=== PATIENT | male | born 1980 | race American Indian/Alaskan Native ===

== ENCOUNTER 2017-02-07 21:41 | Emergency (ER) | payer MEDICARE ==
[2017-02-07 22:00] VITALS: BP 128/81
[2017-02-07 22:31] LABS: Basophils % (Auto) 0.3 % (0.0-1.8); Eosinophils % (Auto) 0.3 % (0.0-4.3); Hematocrit 45.5 % (35.5-45.6); Hemoglobin 15.2 gm/dl (11.8-15.2); Mean Corpuscular HGB Conc 33 % (32-34); Mean Corpuscular Hemoglobin 30 pg (28-32); Mean Corpuscular Volume 91 fl (84-94); Red Blood Count 5.02 M/mm3 (3.65-5.03); Red Cell Distribution Width 13.5 % (13.2-15.2); White Blood Count 12.4 K/mm3 (4.5-11.0)
[2017-02-07 22:38] LABS: Platelet Count 155 K/mm3 (140-440)
[2017-02-07 22:45] LABS: Anion Gap 20 mmol/L; Blood Urea Nitrogen 11 mg/dL (9-20); Calcium 9.1 mg/dL (8.4-10.2); Carbon Dioxide 23 mmol/L (22-30); Chloride 101.5 mmol/L (98-107); Glucose 117 mg/dL (75-100); INR 1.07 (0.87-1.13); Potassium 4.3 mmol/L (3.6-5.0); Sodium 140 mmol/L (137-145)
[2017-02-07 22:46] LABS: Partial Thromboplastin Time 27.5 Sec. (24.2-36.6)
== END 2017-02-07 22:50 | disposition left against medical advice (07) ==
LOC: ED 21:41
DX: R07.89 Other chest pain (principal); F14.10 Cocaine abuse, uncomplicated; R61 Generalized hyperhidrosis; Z53.21 Procedure and treatment not carried out due to patient leaving prior to being seen by health care provider
CPT/HCPCS: 36415; 80048; 84484; 85025; 85610; 85730; 93005; 93010

== ENCOUNTER 2017-02-08 10:11 | Emergency (ER) | payer MEDICARE ==
[2017-02-08] MEDS ORDERED: HALDOL IM ONE (11:11)
--- NOTE | 2017-02-08 11:17 | Emergency Department Report ---
HPI - General Chief Complaint: Psych Time Seen by Provider: 02/08/17 10:53 - HPI HPI: This is a 36-year-old Afro-[place] male who [place] [facility] with the need for a mental health evaluation. At first the patient is cooperative but has pressured speech and tangential thoughts. At first the patient says he is here because he is "in love with a beautiful woman." Then he started asking how he can go to school and become a nurse. When asked how he got here, he says that he got here in a van driven by a apple named Francisco and "I trust him" but it does not appear as if he knows this individual. The patient says he was previously had [facility] for drug abuse and schizophrenia. He says that he is still not taking the medications prescribed. ED Past Medical Hx - Past Medical History Previous Medical History?: Yes Hx Psychiatric Treatment: Yes (SCHIZOPHRENIA,BIPOLAR) - Surgical History Past Surgical History?: Yes Additional Surgical History: Fractured left arm. - Social History Smoking Status: Current Every Day Smoker Substance Use Type: None - Medications Home Medications: Home Medications Medication Instructions Recorded Confirmed Last Taken Type Quetiapine Fumarate [Seroquel] 100 mg PO QHS #15 tablet 03/07/16 Unknown Rx Ibuprofen [Motrin 600 MG tab] 600 mg PO Q8H PRN #30 tablet 12/22/16 Unknown Rx Nicotine [Habitrol] 14 mg TD DAILY #30 patch 12/22/16 Unknown Rx ED Review of Systems ROS: Stated complaint: BACK PAIN Other details as noted in HPI Comment: All other systems reviewed and negative Constitutional: denies: chills, fever Eyes: denies: eye pain, eye discharge, vision change ENT: denies: ear pain, throat pain Respiratory: denies: cough, shortness of breath, wheezing Cardiovascular: denies: chest pain, palpitations Gastrointestinal: denies: abdominal pain, nausea, diarrhea Genitourinary: denies: urgency, dysuria Musculoskeletal: denies: back pain, joint swelling, arthralgia Skin: denies: rash, lesions Neurological: denies: headache, weakness, paresthesias Psychiatric: auditory hallucinations. denies: homicidal thoughts, suicidal thoughts Physical Exam - Physical Exam Vital Signs: Vital Signs 02/08/17 10:30 Temperature 98.0 F Pulse Rate 68 Respiratory 18 Rate Blood Pressure 132/69 O2 Sat by Pulse 99 Oximetry Physical Exam: GENERAL: The patient is well-developed well-nourished. HEENT: Normocephalic. Atraumatic. Extraocular motions are intact. Patient has moist mucous membranes. Pupils equal reactive to light bilaterally. NECK: Supple. Trachea is midline. CHEST/LUNGS: Clear to auscultation. There is no respiratory distress noted. HEART/CARDIOVASCULAR: Regular. There is no tachycardia. There is no gallop rub or murmur. ABDOMEN: Abdomen is soft, nontender. Patient has normal bowel sounds. There is no abdominal distention. SKIN: Skin is warm and dry. NEURO: The patient is awake, alert, and oriented. The patient is cooperative. The patient has no focal neurologic deficits. The patient has normal gait. No slurred speech. MUSCULOSKELETAL: There is no tenderness or deformity. There is no limitation range of motion. There is no evidence of acute injury. PSYCH: Patient has pressured speech and tangential thoughts. ED Course Vital Signs 02/08/17 10:30 Temperature 98.0 F Pulse Rate 68 Respiratory 18 Rate Blood Pressure 132/69 O2 Sat by Pulse 99 Oximetry ED Medical Decision Making - Lab Data Result diagrams: 02/08/17 11:23 02/08/17 11:23 - Medical Decision Making This is a 36-year-old male who presents to the emergency department from [facility] with what appears to be the need for a mental health evaluation. At first the patient appears friendly but it is obvious that he has some level of psychosis going on as he is having tangential thoughts and some stream of consciousness along with pressured speech. However shortly after I finished my initial history and examination, the patient became very aggressive towards ER staff and required some seclusion and eventually chemical sedation. Prior to this the patient was yelling at the top of his lungs, banging on the [place] and windows. For these reasons the patient has been made a 1013 and will need further psychiatric attention. Patient's labs have this far been unremarkable. Negative blood alcohol level. No signs of infection and normal electrolytes. We do not yet have a urinalysis on this patient and there could be some drug involvement as he has a history of previous cocaine abuse but I do not believe that this will stop him from needing further psychiatric evaluation. Vital signs stable throughout his ED course. Patient is medically cleared for psychiatric placement. - Differential Diagnosis bipolar disorder, schizophrenia, schizoaffective, substance abuse Critical Care Time: No Critical care attestation.: If time is entered above; I have spent that time in minutes in the direct care of this critically ill patient, excluding procedure time. ED Disposition Clinical Impression: Schizophrenia Qualifiers: Schizophrenia type: unspecified Qualified Code(s): F20.9 - Schizophrenia, unspecified Psychosis Qualifiers: Psychosis type: unspecified psychosis type Qualified Code(s): F29 - Unspecified psychosis not due to a substance or known physiological condition Disposition: DC/TX PSY HOSP/PSY UNIT Is pt being admited?: No Condition: Stable Time of Disposition: 13:24
[2017-02-08 11:49] LABS: Basophils % (Auto) 0.7 % (0.0-1.8); Eosinophils % (Auto) 1.5 % (0.0-4.3); Hematocrit 47.2 % (35.5-45.6); Hemoglobin 15.6 gm/dl (11.8-15.2); Mean Corpuscular HGB Conc 33 % (32-34); Mean Corpuscular Hemoglobin 30 pg (28-32); Mean Corpuscular Volume 91 fl (84-94); Red Cell Distribution Width 13.9 % (13.2-15.2); White Blood Count 13.3 K/mm3 (4.5-11.0)
[2017-02-08 11:53] LABS: Anion Gap 20 mmol/L; Blood Urea Nitrogen 16 mg/dL (9-20); Calcium 9.4 mg/dL (8.4-10.2); Carbon Dioxide 23 mmol/L (22-30); Chloride 103.7 mmol/L (98-107); Glucose 120 mg/dL (75-100); Potassium 4.1 mmol/L (3.6-5.0); Sodium 143 mmol/L (137-145)
[2017-02-08 11:59] LABS: Platelet Count 178 K/mm3 (140-440)
--- NOTE | 2017-02-08 13:51 | Consultation ---
History of Present Illness - Reason for Consult Consult date: 02/08/17 Reason for consult: psychiatric evaluation - Chief Complaint Chief complaint: "I'm in love" 36 year old black male seen in the ER for psychiatric evaluation. He presents with manic/psychotic symptoms. He is tangential, has flight of ideas, and is paranoid. He reports smoking cocaine yesterday and drinking a beer. He received haldol prior to the interview. He is agreeable to po meds. He was at [facility] within the week and the lodge. Medications and Allergies Allergies Allergy/AdvReac Type Severity Reaction Status Date / Time No Known Allergies Allergy Verified 12/27/16 10:36 Home Medications Medication Instructions Recorded Confirmed Last Taken Type Quetiapine Fumarate [Seroquel] 100 mg PO QHS #15 tablet 03/07/16 Unknown Rx Ibuprofen [Motrin 600 MG tab] 600 mg PO Q8H PRN #30 tablet 12/22/16 Unknown Rx Nicotine [Habitrol] 14 mg TD DAILY #30 patch 12/22/16 Unknown Rx Past psychiatric history - Past Medical History Past Medical History: No medical history Past Surgical History: No surgical history - past Psychiatric treatment and history Psych: Bipolar, Psychosis, Schizophrenia - Social History Social history: other (unable to assess psychosocial details) Mental Status Exam - Vital signs Last Vital Signs Temp 98.0 F 02/08/17 10:30 Pulse 68 02/08/17 10:30 Resp 18 02/08/17 12:09 BP 132/69 02/08/17 10:30 Pulse Ox 99 02/08/17 10:30 - Exam Orientation: place, person Affect: agitated Mood: congruent with affect Thought content: delusions, paranoia Thought Process: Flight of Ideas, Disorganized Perceptions: other (denied) Speech: pressured Concentration: unable to pay attention Motor activity: agitated Level of consciousness: alert Sleep Symptoms: Insomnia Interaction: other (he attempted to be cooperative but required redirection multiple times) Results Result Diagrams: 02/08/17 11:23 02/08/17 11:23 Abnormal lab results 02/08/17 02/08/17 Range/Units 11:23 11:23 WBC 13.3 H (4.5-11.0) K/mm3 RBC 5.20 H (3.65-5.03) M/mm3 Hgb 15.6 H (11.8-15.2) gm/dl Hct 47.2 H (35.5-45.6) % [place] % (Auto) 9.8 H (0.0-7.3) % [place] # 1.3 H (0.0-0.8) K/mm3 Seg Neutrophils # 8.1 H (1.8-7.7) K/mm3 Glucose 120 H (75-100) mg/dL All other labs normal. Assessment and Plan Assessment and plan: Impression: Schizoaffective disorder/bipolar type:Acute psychosis Cocaine use Recommendation: Ativan 2mg po every 6 hours prn agitation Zyprexa 5mg bid for psychosis 1013 and transfer to inpatient psychiatric facility - Psychiatric problem (1) Schizoaffective disorder, bipolar type Current Visit: Yes Status: Acute
[2017-02-08] MEDS: ATIVAN PO PRN (15:18)
[2017-02-09] MEDS: ATIVAN PO PRN ×2 (09:06→21:23)
--- NOTE | 2017-02-09 19:00 | Progress Note ---
Subjective - Reason for Consult Reason for consult: psych consult - Chief Complaint Chief complaint: 36 year old black male with history of scpt and cocaine abuse presents to [facility] for an evaluation. Patient currently is preoccupied with returning back to [place] in the PHP program. He states that he is not incurring any psychosis. He denies any SI/HI/AH/VH. He states that he's tolerating his meds and denies any depression or keturah. Mental Status Exam - Vital signs Last Vital Signs Temp 97.6 F 02/09/17 11:00 Pulse 73 02/09/17 11:00 Resp 16 02/09/17 11:11 BP 126/74 02/09/17 11:00 Pulse Ox 100 02/09/17 11:11 - Exam Orientation: time, place, person Affect: normal Mood: anxious Thought content: delusions Thought Process: Circumstantial Perceptions: none Speech: rapid Concentration: distractible Motor activity: agitated Level of consciousness: alert Memory: Intact Interaction: cooperative Assessment and Plan Impression: Schizoaffective disorder/bipolar type Cocaine use Recommendation: Ativan 2mg po every 6 hours prn agitation Zyprexa 5mg bid for psychosis will look at possible placement with PHP/inpatient
[2017-02-10 21:34] VITALS: BP 134/82
[2017-02-10] MEDS: ATIVAN PO PRN (22:19)
--- NOTE | 2017-02-11 08:12 | Progress Note ---
Subjective - Reason for Consult Consult date: 02/11/17 Reason for consult: Psychiatry Follow-up - Chief Complaint Chief complaint: "Will I be leaving today" 36 year old black male with history of scpt and cocaine abuse presents to [facility] for an evaluation. Today patient is calm and cooperative during assessment. He would like to return to [place], but will be transported to [facility]. He stated that he slept well with no issues with his appetite. He denies SI/HI's and AVH's at this time. He denies any side effects from his psy medications. He denies depression or manic symptoms. Mental Status Exam - Vital signs Last Vital Signs Temp 98.0 F 02/10/17 21:33 Pulse 70 02/10/17 21:33 Resp 20 02/11/17 06:26 BP 134/82 02/10/17 21:33 Pulse Ox 99 02/11/17 06:26 - Exam Narrative exam: MSE: Appearance: calm, cooperative Behavior: good eye contact Speech: regular rate and tone Mood: "I feel pretty good" Affect: euthymic Thought Process: linear Thought Content: denies SI/HI's and AVH's Motor Activity: sitting up in bed Cognition: A/Ox3 Insight: fair Judgment: fair Assessment and Plan Impression: 36 year old black male with history of scpt and cocaine abuse presents to [facility] for an evaluation. Today patient is calm and cooperative during assessment. He would like to return to [place], but will be transported to [facility]. Recommendation/Plan: Pending transfer to [facility] today. Report called by assigned RN.
--- NOTE | 2017-02-13 15:23 | ED Elopement Review ---
ED Pt Elopement review - Results review Lab results: Laboratory Tests 02/08/17 02/08/17 02/08/17 11:23 11:23 11:23 WBC 13.3 H RBC 5.20 H Hgb 15.6 H Hct 47.2 H MCV 91 MCH 30 MCHC 33 RDW 13.9 Plt Count 178 Lymph % (Auto) 27.3 [place] % (Auto) 9.8 H Eos % (Auto) 1.5 Baso % (Auto) 0.7 Lymph # 3.6 [place] # 1.3 H Eos # 0.2 Baso # 0.1 Seg Neutrophils % 60.7 Seg Neutrophils # 8.1 H Sodium 143 Potassium 4.1 Chloride 103.7 Carbon Dioxide 23 Anion Gap 20 BUN 16 Creatinine 1.0 Estimated GFR > 60 BUN/Creatinine Ratio 16.00 Glucose 120 H Calcium 9.4 Plasma/Serum Alcohol < 0.01 - Call Back decision Pt Call Back Decision: No action required
== END 2017-02-11 08:15 ==
LOC: EEVIPCON 10:11 → ED 10:11
DX: F20.9 Schizophrenia, unspecified (principal); F29 Unspecified psychosis not due to a substance or known physiological condition; F31.9 Bipolar disorder, unspecified; F17.200 Nicotine dependence, unspecified, uncomplicated
CPT/HCPCS: 36415; 80048; 85025; 96372; 99285; G0480; J1630; 80320

== ENCOUNTER 2017-03-24 10:41 | Emergency (ER) | payer MEDICARE | END 2017-03-24 10:55 | disposition left against medical advice (07) | LOC: ED 10:41 | DX: R07.9 Chest pain, unspecified (principal); Z53.21 Procedure and treatment not carried out due to patient leaving prior to being seen by health care provider ==

== ENCOUNTER 2017-03-24 22:50 | Emergency (ER) | payer MEDICAID, MEDICARE ==
[2017-03-25 01:40] VITALS: BP 120/84
--- NOTE | 2017-03-27 09:34 | ED Elopement Review ---
ED Pt Elopement review - Call Back decision Pt Call Back Decision: No action required
== END 2017-03-25 06:04 | disposition left against medical advice (07) ==
LOC: ED 22:50
DX: R07.9 Chest pain, unspecified (principal); Z53.21 Procedure and treatment not carried out due to patient leaving prior to being seen by health care provider
CPT/HCPCS: 93005; 93010

== ENCOUNTER 2017-03-25 16:38 | Emergency (ER) | payer MEDICAID, MEDICARE ==
[2017-03-26] MEDS ORDERED: ATIVAN ONE (03:34)
[2017-03-26] MEDS ORDERED: HALDOL ONE (03:34)
[2017-03-26] MEDS ORDERED: ATIVAN IM PRN (03:50)
[2017-03-26] MEDS ORDERED: HALDOL IM ONE (03:50)
--- NOTE | 2017-03-26 03:52 | Emergency Department Report ---
ED General Adult HPI - General Chief complaint: Dyspnea/Respdistress Stated complaint: Diff Breathing Time Seen by Provider: 03/26/17 03:01 Source: patient, RN notes reviewed, old records reviewed Mode of arrival: Ambulatory Limitations: Other (patient is psychiatrically disorganized, and the patient is a very poor historian) - History of Present Illness Initial comments: Is 36-year-old male. He is previously unknown to me. Has a medical history of schizophrenia and bipolar. The patient presents to the ER complaining of "broken heart." He indicates that this symptom has been present since the 1920s. He indicates his grandmother is upsetting him. The patient does indicate that he is access to guns and firearms. The patient is elusive about homicidality and suicidality. The patient indicates no vomiting or diaphoresis. No leg pain. No leg swelling. The patient is initially refusing laboratory studies. The patient is obviously psychotic, and does not exhibit decision-making capacity, it is clearly danger to himself and other people. He is placed on a 1013. Low risk by well's criteria, no pulmonary embolus or DVT risk factors, PERC negative, low risk by GINNY score, low risk by heart sure. The patient required Haldol and Ativan. Laboratory studies are unremarkable. At this point in time , it appears that there is no medical contraindication to psychiatric admissions this evaluation/consultation. -: Gradual Severity scale (0 -10): 0 Associated Symptoms: denies: cough, diaphoresis - Related Data Previous Rx's Medication Instructions Recorded Last Taken Type Quetiapine Fumarate [Seroquel] 100 mg PO QHS #15 tablet 03/07/16 Unknown Rx Ibuprofen [Motrin 600 MG tab] 600 mg PO Q8H PRN #30 tablet 12/22/16 Unknown Rx Nicotine [Habitrol] 14 mg TD DAILY #30 patch 12/22/16 Unknown Rx Allergies Allergy/AdvReac Type Severity Reaction Status Date / Time No Known Allergies Allergy Verified 12/27/16 10:36 ED Review of Systems ROS: Stated complaint: Diff Breathing Other details as noted in HPI Constitutional: denies: fever Eyes: denies: eye discharge ENT: denies: epistaxis Respiratory: see HPI Cardiovascular: chest pain Gastrointestinal: denies: vomiting Genitourinary: as per HPI Musculoskeletal: as per HPI Neurological: as per HPI Psychiatric: as per HPI. denies: suicidal thoughts ED Past Medical Hx - Past Medical History Hx Psychiatric Treatment: Yes (SCHIZOPHRENIA,BIPOLAR) Additional medical history: bronchitis - Surgical History Additional Surgical History: Fractured left arm. - Social History Smoking Status: Current Every Day Smoker Substance Use Type: None - Medications Home Medications: Home Medications Medication Instructions Recorded Confirmed Last Taken Type Quetiapine Fumarate [Seroquel] 100 mg PO QHS #15 tablet 03/07/16 Unknown Rx Ibuprofen [Motrin 600 MG tab] 600 mg PO Q8H PRN #30 tablet 12/22/16 Unknown Rx Nicotine [Habitrol] 14 mg TD DAILY #30 patch 12/22/16 Unknown Rx ED Physical Exam - General Limitations: No Limitations General appearance: alert, in no apparent distress - Head Head exam: Present: atraumatic, normocephalic - Eye Eye exam: Present: normal appearance - ENT ENT exam: Present: normal exam, normal orophraynx, mucous membranes moist - Neck Neck exam: Present: normal inspection, full ROM. Absent: tenderness, meningismus - Respiratory Respiratory exam: Present: normal lung sounds bilaterally. Absent: respiratory distress, wheezes, rales, rhonchi, stridor, chest wall tenderness, accessory muscle use, decreased breath sounds, prolonged expiratory - Cardiovascular Cardiovascular Exam: Present: regular rate, normal rhythm, normal heart sounds. Absent: bradycardia, tachycardia, irregular rhythm, systolic murmur, diastolic murmur, rubs, gallop - GI/Abdominal GI/Abdominal exam: Present: soft, normal bowel sounds. Absent: distended, tenderness, guarding, rebound, rigid, pulsatile mass - Rectal Rectal exam: Present: deferred - Extremities Exam Extremities exam: Present: normal inspection, full ROM, normal capillary refill. Absent: tenderness, pedal edema, joint swelling, calf tenderness - Back Exam Back exam: Present: normal inspection, full ROM. Absent: tenderness, CVA tenderness (R), CVA tenderness (L), muscle spasm, paraspinal tenderness, vertebral tenderness - Neurological Exam Neurological exam: Present: alert, normal gait, other (Extraocular movements intact. Tongue midline. No facial droop. Facial sensation intact to light touch in the V1, V2, V3 distribution bilaterally. 5 and 5 strength in 4 extremities.. Sensation is intact to light touch in 4 extremities.). Absent: motor sensory deficit - Psychiatric Psychiatric exam: Present: agitated - Skin Skin exam: Present: warm, dry, intact, normal color. Absent: rash ED Course Vital Signs 03/25/17 03/26/17 17:16 02:35 Temperature 98.6 F 98 F Pulse Rate 74 88 Respiratory 20 18 Rate Blood Pressure 137/86 Blood Pressure 132/77 [Left] O2 Sat by Pulse 100 99 Oximetry ED Medical Decision Making - Lab Data Result diagrams: 03/26/17 03:57 03/26/17 03:57 Vital Signs 03/25/17 03/26/17 17:16 02:35 Temperature 98.6 F 98 F Pulse Rate 74 88 Respiratory 20 18 Rate Blood Pressure 137/86 Blood Pressure 132/77 [Left] O2 Sat by Pulse 100 99 Oximetry Lab Results 03/26/17 03/26/17 03/26/17 Range/Units 03:57 03:57 03:57 WBC 9.1 (4.5-11.0) K/mm3 RBC 5.10 H (3.65-5.03) M/mm3 Hgb 15.3 H (11.8-15.2) gm/dl Hct 46.0 H (35.5-45.6) % MCV 90 (84-94) fl MCH 30 (28-32) pg MCHC 33 (32-34) % RDW 13.5 (13.2-15.2) % Plt Count 138 L (140-440) K/mm3 Sodium 138 (137-145) mmol/L Potassium 3.9 (3.6-5.0) mmol/L Chloride 99.9 (98-107) mmol/L Carbon Dioxide 28 (22-30) mmol/L Anion Gap 14 mmol/L BUN 9 (9-20) mg/dL Creatinine 1.1 (0.8-1.5) mg/dL Estimated GFR > 60 ml/min BUN/Creatinine Ratio 8.18 % Glucose 113 H (75-100) mg/dL Calcium 8.6 (8.4-10.2) mg/dL Total Creatine Kinase 348 H (55-170) units/L Salicylates < 0.3 L (2.8-20.0) mg/dL Acetaminophen (10.0-30.0) ug/mL Plasma/Serum Alcohol (0-0.07) gm% 06/06/17 06/06/17 Range/Units 03:57 03:57 WBC (4.5-11.0) K/mm3 RBC (3.65-5.03) M/mm3 Hgb (11.8-15.2) gm/dl Hct (35.5-45.6) % MCV (84-94) fl MCH (28-32) pg MCHC (32-34) % RDW (13.2-15.2) % Plt Count (140-440) K/mm3 Sodium (137-145) mmol/L Potassium (3.6-5.0) mmol/L Chloride (98-107) mmol/L Carbon Dioxide (22-30) mmol/L Anion Gap mmol/L BUN (9-20) mg/dL Creatinine (0.8-1.5) mg/dL Estimated GFR ml/min BUN/Creatinine Ratio % Glucose (75-100) mg/dL Calcium (8.4-10.2) mg/dL Total Creatine Kinase (55-170) units/L Salicylates (2.8-20.0) mg/dL Acetaminophen < 15.0 (10.0-30.0) ug/mL Plasma/Serum Alcohol < 0.01 (0-0.07) gm% - EKG Data -: EKG Interpreted by Me EKG shows normal: sinus rhythm Rate: bradycardia - EKG Data When compared to previous EKG there are: no significant change Interpretation: unchanged when compared t 03/26/17 05:20 sinus bradycardia, normal intervals, normal axis, not consistent with STEMI, appears unchanged compared to prior - Radiology Data Radiology results: image reviewed interpreted by me: X-ray of the chest is negative for acute disease - Medical Decision Making Differential diagnosis: Bipolar, schizophrenia, mood disorder, atypical chest pain, medical clearance for psychiatric placement Critical care attestation.: If time is entered above; I have spent that time in minutes in the direct care of this critically ill patient, excluding procedure time. ED Disposition Clinical Impression: Mood disorder Disposition: DC/TX PSY HOSP/PSY UNIT Is pt being admited?: No Does the pt Need Aspirin: No Condition: Stable Referrals: PRIMARY CARE, [Primary Care Provider] - 3-5 Days
[2017-03-26 04:16] LABS: Hemoglobin 15.3 gm/dl (11.8-15.2); Mean Corpuscular HGB Conc 33 % (32-34); Mean Corpuscular Hemoglobin 30 pg (28-32); Mean Corpuscular Volume 90 fl (84-94); Platelet Count 138 K/mm3 (140-440); Red Cell Distribution Width 13.5 % (13.2-15.2); White Blood Count 9.1 K/mm3 (4.5-11.0)
[2017-03-26 04:35] LABS: BUN/Creatinine Ratio 8.18; Blood Urea Nitrogen 9 mg/dL (9-20); Calcium 8.6 mg/dL (8.4-10.2); Carbon Dioxide 28 mmol/L (22-30); Creatine Kinase 348 units/L (55-170); Glucose 113 mg/dL (75-100)
[2017-03-26 04:36] LABS: Anion Gap 14 mmol/L; Chloride 99.9 mmol/L (98-107); Potassium 3.9 mmol/L (3.6-5.0); Sodium 138 mmol/L (137-145)
--- NOTE | 2017-03-26 07:29 | XRay Report ---
Chest 2 views: History: Shortness of breath. Findings Normal cardiomediastinal silhouette. Trachea is midline. No consolidation, pneumothorax or pleural effusion. Impression: No acute cardiopulmonary findings.
--- NOTE | 2017-03-26 14:33 | Consultation ---
History of Present Illness - Reason for Consult Consult date: 03/26/17 Reason for consult: Mental Health Evaluation Requesting physician: RIMA HAMMER - Chief Complaint Chief complaint: "I am fine" - History of Present Psychiatric Illness 36-year-old male with a psy history of schizophrenia and bipolar. The patient presents to the ER complaining of "broken heart." He indicates that this symptom has been present since the 1920s. Today patient is uncooperative during assessment. He would state, "I just came here because I have bronchitis." Per the ER note patient was uncooperative during the entire triage. He is elusive with his questions, but did state that he takes Seroquel. Patient had to be redirected multiple times, possible responding to external/internal stimuli. He denies SI/HI's, AVH's, and depression symptoms. Medications and Allergies Allergies Allergy/AdvReac Type Severity Reaction Status Date / Time No Known Allergies Allergy Verified 12/27/16 10:36 Home Medications Medication Instructions Recorded Confirmed Last Taken Type Quetiapine Fumarate [Seroquel] 100 mg PO QHS #15 tablet 03/07/16 Unknown Rx Ibuprofen [Motrin 600 MG tab] 600 mg PO Q8H PRN #30 tablet 12/22/16 Unknown Rx Nicotine [Habitrol] 14 mg TD DAILY #30 patch 12/22/16 Unknown Rx Active Meds: Active Medications Lorazepam (Ativan) 2 mg IM Q4HR PRN PRN Reason: Agitation Last Admin: 03/26/17 03:53 Dose: 2 mg Past psychiatric history - Past Medical History Past Medical History: No medical history Past Surgical History: No surgical history - past Psychiatric treatment and history Psych: Bipolar, Schizophrenia psychiatric treatment history: Multiple inpatient settings. Would not answer about fam psy hx. - Social History Social history: other (Would not say where he reside.) Mental Status Exam - Vital signs Last Vital Signs Temp 97.5 F L 03/26/17 08:00 Pulse 65 03/26/17 08:00 Resp 18 03/26/17 08:34 BP 135/77 03/26/17 08:00 Pulse Ox 100 03/26/17 08:34 - Exam Narrative exam: ROS: (-) depression (+) psychosis MSE: Appearance: uncooperative Behavior: poor eye contact Speech: regular rate and tone Mood: "I am cool" Affect: congruent to mood Thought Process: tangential Thought Content: denies SI/HI's and AVH's Motor Activity: lying in bed Cognition: a/ox 3 Insight: limited Judgment: limited Results Result Diagrams: 03/26/17 03:57 03/26/17 03:57 Abnormal lab results 03/26/17 03/26/17 03/26/17 Range/Units 03:57 03:57 03:57 RBC 5.10 H (3.65-5.03) M/mm3 Hgb 15.3 H (11.8-15.2) gm/dl Hct 46.0 H (35.5-45.6) % Plt Count 138 L (140-440) K/mm3 Glucose 113 H (75-100) mg/dL Total Creatine Kinase 348 H (55-170) units/L Salicylates < 0.3 L (2.8-20.0) mg/dL All other labs normal. Assessment and Plan Assessment and plan: Impression: Unspecified Mood DO with psychotic features. Today patient is uncooperative during assessment. He would state, "I just came here because I have bronchitis." Per the ER note patient was uncooperative during the entire triage. He is elusive with his questions, but did state that he takes Seroquel. He denies SI/HI's and AVH's. He refused most labs and diagnostics last night. DD: R/O Bipolar, Shizoaffective DO Recommendation/Plan: Continue 1013 with placement to inpatient psy services. Start Seroquel 200 mg PO HS for mood/psychotic symptoms. Titrate upward if patient may have an extended stay. Gather more collateral in 24 hours to determine dispo.
--- NOTE | 2017-03-27 17:39 | Progress Note ---
Subjective - Reason for Consult Consult date: 03/27/17 Reason for consult: psychiatric follow up - Chief Complaint Chief complaint: "I just needed a chest x-ray" 36-year-old male with a psy history of schizophrenia and bipolar. Patient states he was tired when initially assessed. He continues to state he had a cough and was concerned with bronchitis. He is interacting appropriately among peers and expressed logical and goal oriented thinking. He denies SI/HI's, AVH's , and depression symptoms. Mental Status Exam - Vital signs Last Vital Signs Temp 97.5 F L 03/27/17 07:18 Pulse 61 03/27/17 07:18 Resp 18 03/27/17 09:36 BP 124/77 03/27/17 07:18 Pulse Ox 99 03/27/17 07:18 - Exam Narrative exam: MSE: Appearance: cooperative Behavior: good eye contact Speech: regular rate and tone Mood: "I am fine" Affect: congruent to mood Thought Process: linear Thought Content: denies SI/HI's and AVH's Motor Activity: no abnormal movements Cognition: a/ox 3 Insight: fair Judgment: fair Assessment and Plan Impression: No acute safety concerns. No suicidal or homicidal ideation. No psychotic symptoms elicited. None reported Recommendation/Plan: Rescind 1013 as he does not meet criteria Follow up with outpatient mental health
[2017-03-27 20:31] VITALS: BP 111/75
== END 2017-03-27 20:34 | disposition home or self-care (01) ==
LOC: EEVIPCON 16:38 → ED 16:38
DX: F39 Unspecified mood [affective] disorder (principal); F31.9 Bipolar disorder, unspecified; F20.9 Schizophrenia, unspecified; F17.200 Nicotine dependence, unspecified, uncomplicated
CPT/HCPCS: 36415; 71020; 80048; 82550; 84484; 85027; 93005; 93010; 96372; 99284; G0480; J1630; J2060; 80320

== ENCOUNTER 2017-06-07 00:16 | Emergency (ER) | payer MEDICARE, MEDICAID ==
[2017-06-07 00:43] VITALS: BP 133/80
== END 2017-06-07 02:01 | disposition left against medical advice (07) ==
LOC: ED 00:16
DX: R51 Headache (principal); F31.9 Bipolar disorder, unspecified; F20.9 Schizophrenia, unspecified; F17.200 Nicotine dependence, unspecified, uncomplicated; Z53.21 Procedure and treatment not carried out due to patient leaving prior to being seen by health care provider

== ENCOUNTER 2017-06-09 01:55 | Emergency (ER) | payer MEDICARE | END 2017-06-09 01:57 | disposition left against medical advice (07) | LOC: ED 01:55 | DX: R12 Heartburn (principal); Z53.21 Procedure and treatment not carried out due to patient leaving prior to being seen by health care provider ==

== ENCOUNTER 2017-06-09 09:32 | Emergency (ER) | payer MEDICARE | END 2017-06-09 09:50 | disposition left against medical advice (07) | LOC: ED 09:32 | DX: Z53.21 Procedure and treatment not carried out due to patient leaving prior to being seen by health care provider (principal) ==

== ENCOUNTER 2017-06-25 23:55 | Emergency (ER) | payer MEDICARE ==
[2017-06-26 00:18] VITALS: BP 143/97
--- NOTE | 2017-06-28 00:43 | ED Elopement Review ---
ED Pt Elopement review - Call Back decision Pt Call Back Decision: Call pt to return to ED [facility] (charge nurse Jeni notified at 00:42 to contact PD patient has homicidal ideation needs psychiatric evaluation)
== END 2017-06-26 00:23 | disposition left against medical advice (07) ==
LOC: EEVIPCON 23:55 → ED 23:55
DX: F29 Unspecified psychosis not due to a substance or known physiological condition (principal); Z53.21 Procedure and treatment not carried out due to patient leaving prior to being seen by health care provider

== ENCOUNTER 2017-07-03 00:36 | Emergency (ER) | payer MEDICARE | END 2017-07-03 01:07 | disposition left against medical advice (07) | LOC: ED 00:36 | DX: M79.1 Myalgia (principal); Z53.21 Procedure and treatment not carried out due to patient leaving prior to being seen by health care provider ==

== ENCOUNTER 2017-07-19 17:53 | Emergency (ER) | payer MEDICAID, MEDICARE ==
[2017-07-19 18:05] VITALS: BP 139/94
== END 2017-07-19 22:05 | disposition left against medical advice (07) ==
LOC: ED 17:53
DX: Z53.21 Procedure and treatment not carried out due to patient leaving prior to being seen by health care provider (principal)
CPT/HCPCS: 36415; G0480; 80320

== ENCOUNTER 2019-11-17 01:04 | Emergency (ER) | payer MEDICARE ==
[2019-11-17 01:11] VITALS: BP 124/73
--- NOTE | 2019-11-17 02:39 | XRay Report ---
CHEST 2 VIEWS INDICATION / CLINICAL INFORMATION: cough and chest pain. COMPARISON: 03/25/2017 FINDINGS: SUPPORT DEVICES: None. HEART / MEDIASTINUM: No significant abnormality. LUNGS / PLEURA: No significant pulmonary or pleural abnormality. .No pneumothorax. ADDITIONAL FINDINGS: No significant additional findings. IMPRESSION: 1. No acute findings. Signer Name: Bertrand Piña MD Signed: 11/17/2019 2:35 AM Workstation Name: [id number]
--- NOTE | 2019-11-17 02:58 | Emergency Department Report ---
ED General Adult HPI - General Chief complaint: Upper Respiratory Infection Stated complaint: SOB Time Seen by Provider: 11/17/19 01:45 Source: patient Mode of arrival: Ambulatory Limitations: No Limitations - History of Present Illness Initial comments: 39-year-old -[place] male smoker presents emergency department complaining of 3 week history of cough congestion with mucus present production and some episodes of shortness of breath. Reports having sweats but no fevers or chills no nausea or vomiting. Reports no hemoptysis no hematemesis nor hematochezia. No presyncope no new medications, no foreign travel. Radiation: non-radiation Severity scale (0 -10): 0 Consistency: constant Improves with: none Worsens with: none Associated Symptoms: cough. denies: diaphoresis, loss of appetite, malaise, seizure, syncope, weakness Treatments Prior to Arrival: none - Related Data Previous Rx's Medication Instructions Recorded Last Taken Type Quetiapine Fumarate [Seroquel] 100 mg PO QHS #15 tablet 03/07/16 Unknown Rx Ibuprofen [Motrin 600 MG tab] 600 mg PO Q8H PRN #30 tablet 12/22/16 Unknown Rx Nicotine [Habitrol] 14 mg TD DAILY #30 patch 12/22/16 Unknown Rx Albuterol INH(or & Nicu Only) 1 puff IH QID PRN #8.5 gram 11/17/19 Unknown Rx [ProAir HFA Inhaler] Benzonatate [Tessalon Perles] 100 mg PO Q8HR #20 capsule 11/17/19 Unknown Rx predniSONE [Deltasone] 50 mg PO QDAY #5 tab 11/17/19 Unknown Rx Allergies Allergy/AdvReac Type Severity Reaction Status Date / Time No Known Allergies Allergy Verified 07/19/17 18:05 ED Review of Systems ROS: Stated complaint: SOB Other details as noted in HPI Comment: All other systems reviewed and negative ED Past Medical Hx - Past Medical History Previous Medical History?: Yes Hx Psychiatric Treatment: Yes (SCHIZOPHRENIA,BIPOLAR) Additional medical history: bronchitis - Surgical History Past Surgical History?: Yes Additional Surgical History: Fractured left arm. - Social History Smoking Status: Current Every Day Smoker Substance Use Type: None - Medications Home Medications: Home Medications Medication Instructions Recorded Confirmed Last Taken Type Quetiapine Fumarate [Seroquel] 100 mg PO QHS #15 tablet 03/07/16 Unknown Rx Ibuprofen [Motrin 600 MG tab] 600 mg PO Q8H PRN #30 tablet 12/22/16 Unknown Rx Nicotine [Habitrol] 14 mg TD DAILY #30 patch 12/22/16 Unknown Rx Albuterol INH(or & Nicu Only) 1 puff IH QID PRN #8.5 gram 11/17/19 Unknown Rx [ProAir HFA Inhaler] Benzonatate [Tessalon Perles] 100 mg PO Q8HR #20 capsule 11/17/19 Unknown Rx predniSONE [Deltasone] 50 mg PO QDAY #5 tab 11/17/19 Unknown Rx ED Physical Exam - General Limitations: No Limitations General appearance: alert, in no apparent distress - Head Head exam: Present: atraumatic, normocephalic - Eye Eye exam: Present: normal appearance, PERRL, EOMI Pupils: Present: normal accommodation - ENT ENT exam: Present: normal exam, mucous membranes moist - Neck Neck exam: Present: normal inspection - Respiratory Respiratory exam: Present: normal lung sounds bilaterally, wheezes, rhonchi - Cardiovascular Cardiovascular Exam: Present: regular rate, normal rhythm. Absent: systolic murmur, diastolic murmur, rubs, gallop - GI/Abdominal GI/Abdominal exam: Present: soft, normal bowel sounds - Rectal Rectal exam: Present: deferred - Extremities Exam Extremities exam: Present: normal inspection, full ROM - Back Exam Back exam: Present: normal inspection - Neurological Exam Neurological exam: Present: alert, oriented X3 - Psychiatric Psychiatric exam: Present: normal affect, normal mood - Skin Skin exam: Present: warm, dry, intact, normal color. Absent: rash ED Course Vital Signs 11/17/19 01:10 Temperature 98.5 F Pulse Rate 78 Respiratory 18 Rate Blood Pressure 124/73 [Right] O2 Sat by Pulse 97 Oximetry ED Medical Decision Making - Radiology Data Radiology results: report reviewed [facility] [address] [place] [address] XRay Report Signed Patient: PATRICK GAMINO JR Theresa#: [id number] : 1980 Acct:[id number] Age/Sex: 39 / M ADM Date: 11/17/19 Loc: ED Attending Dr: Ordering Physician: BALDO ANTONIO Date of Service: 11/17/19 Procedure(s): XR chest routine 2V Accession Number(s): [id number] cc: BALDO ANTONIO Fluoro Time In Minutes: CHEST 2 VIEWS INDICATION / CLINICAL INFORMATION: cough and chest pain. COMPARISON: 03/25/2017 FINDINGS: SUPPORT DEVICES: None. HEART / MEDIASTINUM: No significant abnormality. LUNGS / PLEURA: No significant pulmonary or pleural abnormality. .No pneum othorax. ADDITIONAL FINDINGS: No significant additional findings. IMPRESSION: 1. No acute findings. Signer Name: Bertrand Piña MD Signed: 11/17/2019 2:35 AM Workstation Name: [id number] Transcribed By: SS Dictated By: Bertrand Piña MD Electronically Authenticated By: Bertrand Piña MD Signed Date/Time: 11/17/19 0656 - Medical Decision Making This patient presents with acute cough, most consistent with cough. Differential diagnosis includes bronchtis, hyper ereactive airway disease, viral syndroeme, PNA. Presentation not consistent with chronic causes of cough (including GERD, asthma, postnasal discharge, medication side effect, CHF, lung cancer or mass). Plan: Normal CXR, supportive care, reassess Critical care attestation.: If time is entered above; I have spent that time in minutes in the direct care of this critically ill patient, excluding procedure time. ED Disposition Clinical Impression: Cough Disposition: DC-01 TO HOME OR SELFCARE Is pt being admited?: No Does the pt Need Aspirin: No Condition: Stable Instructions: Cold Symptoms (ED), Acute Cough (ED) Prescriptions: predniSONE [Deltasone] 50 mg PO QDAY #5 tab Albuterol INH(or & Nicu Only) [ProAir HFA Inhaler] 1 puff IH QID PRN #8.5 gram PRN Reason: cough and/or wheezing Benzonatate [Tessalon Perles] 100 mg PO Q8HR #20 capsule Referrals: ARI ALCANTARA MD [Staff Physician] - 3-5 Days
== END 2019-11-17 03:50 | disposition home or self-care (01) ==
LOC: ED 01:04
DX: R05 Cough (principal); R06.02 Shortness of breath; R09.89 Other specified symptoms and signs involving the circulatory and respiratory systems; F20.9 Schizophrenia, unspecified; F31.9 Bipolar disorder, unspecified; F17.200 Nicotine dependence, unspecified, uncomplicated; Z98.890 Other specified postprocedural states; Z79.899 Other long term (current) drug therapy
CPT/HCPCS: 71046

== ENCOUNTER 2019-11-17 07:21 | Emergency (ER) | payer MEDICARE ==
[2019-11-17 07:32] VITALS: BP 130/92
== END 2019-11-17 08:00 | disposition left against medical advice (07) ==
LOC: ED 07:21
DX: R05 Cough (principal); R09.89 Other specified symptoms and signs involving the circulatory and respiratory systems; R06.02 Shortness of breath; Z53.21 Procedure and treatment not carried out due to patient leaving prior to being seen by health care provider

== ENCOUNTER 2019-11-25 21:37 | Emergency (ER) | payer SELFPAY ==
[2019-11-25 21:43] VITALS: BP 133/83
== END 2019-11-25 22:00 | disposition left against medical advice (07) ==
LOC: ED 21:37
DX: R09.89 Other specified symptoms and signs involving the circulatory and respiratory systems (principal); Z53.21 Procedure and treatment not carried out due to patient leaving prior to being seen by health care provider

== ENCOUNTER 2019-11-30 03:29 | Emergency (ER) | payer SELFPAY ==
[2019-11-30 03:43] VITALS: BP 136/85
== END 2019-11-30 08:00 ==
LOC: ED 03:29
DX: R05 Cough (principal); Z53.21 Procedure and treatment not carried out due to patient leaving prior to being seen by health care provider

== ENCOUNTER 2019-12-05 02:14 | Emergency (ER) | payer SELFPAY ==
[2019-12-05 02:26] VITALS: BP 128/75
[2019-12-05 03:27] LABS: Bilirubin,Urine NEG (Negative); Blood,Urine NEG (Negative); Color,Urine Straw (Yellow); Protein,Urine <15 mg/dL mg/dL (Negative)
[2019-12-05 03:35] LABS: Amphetamine Screen,Urine PRESUMPTIVE NEGATIVE; Benzodiazepines Screen,Urine PRESUMPTIVE NEGATIVE; Cannabinoid Screen,Urine PRESUMPTIVE NEGATIVE; Cocaine Screen,Urine PRESUMPTIVE NEGATIVE; Methadone Screen,Urine PRESUMPTIVE NEGATIVE; Opiate Screen,Urine PRESUMPTIVE NEGATIVE
[2019-12-05 03:41] LABS: BUN/Creatinine Ratio 9; Blood Urea Nitrogen 10 mg/dL (9-20); Calcium 9.5 mg/dL (8.4-10.2); Hemolysis Index 14
[2019-12-05 04:14] LABS: Hemoglobin 19.7 gm/dl (11.8-15.2); Mean Corpuscular HGB Conc 34 % (32-34); Mean Corpuscular Volume 90 fl (84-94); Platelet Count 103 K/mm3 (140-440); Red Blood Count 6.43 M/mm3 (3.65-5.03); Red Cell Distribution Width 13.8 % (13.2-15.2)
[2019-12-05 04:15] LABS: Basophils % (Auto) 0.6 % (0.0-1.8); Eosinophils # (Auto) 0.2 K/mm3 (0.0-0.4); Eosinophils % (Auto) 2.3 % (0.0-4.3); Lymphocytes # (Auto) 1.9 K/mm3 (1.2-5.4); Lymphocytes % (Auto) 27.8 % (13.4-35.0); Monocytes # (Auto) 0.3 K/mm3 (0.0-0.8); Monocytes % (Auto) 4.8 % (0.0-7.3)
== END 2019-12-05 07:10 | disposition left against medical advice (07) ==
LOC: ED 02:14
DX: F32.9 Major depressive disorder, single episode, unspecified (principal); Z53.21 Procedure and treatment not carried out due to patient leaving prior to being seen by health care provider
CPT/HCPCS: 36415; 80048; 80307; 80320; 81001; 85025; 87086; G0480

== ENCOUNTER 2020-01-02 00:31 | Emergency (ER) | payer SELFPAY | END 2020-01-02 01:05 | disposition left against medical advice (07) | LOC: ED 00:31 | DX: Z53.21 Procedure and treatment not carried out due to patient leaving prior to being seen by health care provider (principal) ==

== ENCOUNTER 2020-01-02 22:15 | Emergency (ER) | payer SELFPAY | END 2020-01-02 22:35 | disposition left against medical advice (07) | LOC: ED 22:15 | DX: Z53.21 Procedure and treatment not carried out due to patient leaving prior to being seen by health care provider (principal) ==

== ENCOUNTER 2022-05-29 21:18 | Emergency (ER) | payer SELFPAY ==
[2022-05-30] MEDS ORDERED: KETOROLAC 60 MG/2 ML INJ IM ONE (02:47)
[2022-05-30] MEDS ORDERED: dexAMETHasone 20 MG/5 ML VIAL IM ONE (02:47)
[2022-05-30] MEDS ORDERED: HYDROcodone/ACETAMINOPHEN 5-325 MG TAB PO ONE (02:48)
[2022-05-30] MEDS ORDERED: ONDANSETRON 4 MG ODT TAB PO ONE (02:48)
--- NOTE | 2022-05-30 03:57 | Emergency Department Report ---
ED Extremity Problem HPI - General Chief complaint: Extremity Injury, Lower Stated complaint: RIGHT LEG PAIN Source: patient, EMS Mode of arrival: Stretcher Limitations: No Limitations - History of Present Illness Initial comments: Patient is a 41-year-old -German male with a history of bipolar disorder and paranoid schizophrenia who presents to the ED with complaint of acute onset persistent nontraumatic right hip pain for the last 12 hours. Patient states that the pain has been constant and persistent especially worse with any movement. Patient states that he is unable to bear weight on the right leg because of worsening right hip pain. Patient denies fall, traumatic injury, heavy lifting, nausea and vomiting, fever, chills, numbness and tingling or weakness of lower extremities bilaterally, headache, low back pain, testicular pain, dysuria, urinary frequency and urgency, or abdominal pain. MD Complaint: extremity pain (right hip pain), joint paint (right hip pain) -: hour(s) (12) Location: right, lower extremity (right hip pain) History of Same: No -: Yes arthralgia (right hip), No fever, No associated dyspnea, No associated chest pain Radiation: distal Severity scale (0 -10): 10 Quality: aching, sharp Consistency: constant Improves with: nothing Worsens with: weight bearing, walking, exertion, palpation Associated Symptoms: denies other symptoms, arthralgias (right hip). denies: chest pain, shortness of breath, fever, myalgias, rash - Related Data Previous Rx's Medication Instructions Recorded Last Taken Type Quetiapine Fumarate [Seroquel] 100 mg PO QHS #15 tablet 03/07/16 Unknown Rx Ibuprofen [Motrin 600 MG tab] 600 mg PO Q8H PRN #30 tablet 12/22/16 Unknown Rx Nicotine [Habitrol] 14 mg TD DAILY #30 patch 12/22/16 Unknown Rx Albuterol Mdi (or & Nicu Only) 1 puff IH QID PRN #8.5 gram 11/17/19 Unknown Rx [ProAir HFA Inhaler] Benzonatate [Tessalon Perles] 100 mg PO Q8HR #20 capsule 11/17/19 Unknown Rx predniSONE [Deltasone] 50 mg PO QDAY #5 tab 11/17/19 Unknown Rx Ibuprofen [Motrin] 800 mg PO Q8HR PRN #30 tablet 05/30/22 Unknown Rx methOCARBAMOL [Robaxin TAB] 750 mg PO Q8H PRN #30 tab 05/30/22 Unknown Rx predniSONE [Deltasone] 60 mg PO QDAY #15 tab 05/30/22 Unknown Rx traMADoL [Ultram] 50 mg PO Q6HR PRN #12 tablet 05/30/22 Unknown Rx Allergies Allergy/AdvReac Type Severity Reaction Status Date / Time No Known Allergies Allergy Verified 07/19/17 18:05 ED Review of Systems ROS: Stated complaint: RIGHT LEG PAIN Other details as noted in HPI Constitutional: denies: chills, fever Eyes: denies: eye pain, eye discharge, vision change ENT: denies: ear pain, throat pain Respiratory: denies: cough, shortness of breath, wheezing Cardiovascular: denies: chest pain, palpitations Endocrine: no symptoms reported Gastrointestinal: denies: abdominal pain, nausea, diarrhea Genitourinary: denies: urgency, dysuria Musculoskeletal: arthralgia (right hip pain). denies: back pain, joint swelling, myalgia Skin: denies: rash, lesions Neurological: denies: headache, weakness, paresthesias Psychiatric: denies: anxiety, depression Hematological/Lymphatic: denies: easy bleeding, easy bruising ED Past Medical Hx - Past Medical History Hx Psychiatric Treatment: Yes (SCHIZOPHRENIA,BIPOLAR) Additional medical history: bronchitis, left arm fracture - Surgical History Additional Surgical History: Fractured left arm. - Social History Smoking Status: Former Smoker Substance Use Type: None - Medications Home Medications: Home Medications Medication Instructions Recorded Confirmed Last Taken Type Quetiapine Fumarate [Seroquel] 100 mg PO QHS #15 tablet 03/07/16 Unknown Rx Ibuprofen [Motrin 600 MG tab] 600 mg PO Q8H PRN #30 tablet 12/22/16 Unknown Rx Nicotine [Habitrol] 14 mg TD DAILY #30 patch 12/22/16 Unknown Rx Albuterol Mdi (or & Nicu Only) 1 puff IH QID PRN #8.5 gram 11/17/19 Unknown Rx [ProAir HFA Inhaler] Benzonatate [Tessalon Perles] 100 mg PO Q8HR #20 capsule 11/17/19 Unknown Rx predniSONE [Deltasone] 50 mg PO QDAY #5 tab 11/17/19 Unknown Rx Ibuprofen [Motrin] 800 mg PO Q8HR PRN #30 tablet 05/30/22 Unknown Rx methOCARBAMOL [Robaxin TAB] 750 mg PO Q8H PRN #30 tab 05/30/22 Unknown Rx predniSONE [Deltasone] 60 mg PO QDAY #15 tab 05/30/22 Unknown Rx traMADoL [Ultram] 50 mg PO Q6HR PRN #12 tablet 05/30/22 Unknown Rx ED Physical Exam - General Limitations: No Limitations General appearance: alert, in no apparent distress - Head Head exam: Present: atraumatic, normocephalic, normal inspection - Eye Eye exam: Present: normal appearance, PERRL, EOMI Pupils: Present: normal accommodation - ENT ENT exam: Present: normal exam, normal orophraynx, mucous membranes moist, TM's normal bilaterally, normal external ear exam - Neck Neck exam: Present: normal inspection, full ROM. Absent: tenderness - Respiratory Respiratory exam: Present: normal lung sounds bilaterally. Absent: respiratory distress, wheezes, rales, rhonchi, chest wall tenderness, accessory muscle use, prolonged expiratory - Cardiovascular Cardiovascular Exam: Present: regular rate, normal rhythm, normal heart sounds. Absent: systolic murmur, diastolic murmur, rubs, gallop - GI/Abdominal GI/Abdominal exam: Present: soft, normal bowel sounds. Absent: tenderness, guarding, rebound, hyperactive bowel sounds, hypoactive bowel sounds, organomegaly, bruit - Extremities Exam Extremities exam: Present: normal inspection, tenderness (Palpable right hip tenderness with limited range of motion due to pain), normal capillary refill. Absent: full ROM (Limited range of motion of right hip due to pain), pedal edema, joint swelling, calf tenderness - Back Exam Back exam: Present: normal inspection, full ROM. Absent: tenderness, CVA tenderness (R), CVA tenderness (L), muscle spasm, paraspinal tenderness, vertebral tenderness - Neurological Exam Neurological exam: Present: alert, oriented X3, CN II-XII intact, abnormal gait (Limping due to pain of right hip), reflexes normal - Psychiatric Psychiatric exam: Present: normal affect, normal mood - Skin Skin exam: Present: warm, dry, intact, normal color. Absent: rash ED Course Vital Signs 05/29/22 05/30/22 05/30/22 21:58 03:00 03:01 Temperature 98.2 F Pulse Rate 70 Respiratory 16 16 16 Rate Blood Pressure 130/80 [Right] O2 Sat by Pulse 98 Oximetry ED Medical Decision Making - Radiology Data Radiology results: report reviewed, image reviewed [facility] [address] [place] [address] XRay Report Signed Patient: PATRICK GAMINO JR R#: [id number] : 1980 Acct:[id number] Age/Sex: 41 / M ADM Date: 05/29/22 Loc: ED Attending Dr: Ordering Physician: BALDO FERGUSON Date of Service: 05/30/22 Procedure(s): XR hip 2-3V RT Accession Number(s): [id number] cc: BALDO FERGUSON Fluoro Time In Minutes: Pelvis with right hip, 2 views HISTORY: Right hip pain COMPARISON: None FINDINGS: Mild to moderate right and mild left hip osteoarthritis. No acute fracture or dislocation. No focal soft tissue abnormality. Signer Name: Alcides Richter MD Signed: 05/30/2022 4:09 AM Workstation Name: [id number] Transcribed By: ELADIA Dictated By: ALCIDES RICHTER MD Electronically Authenticated By: ALCIDES RICHTER MD Signed Date/Time: 05/30/22 0409 DD/ 034 TD/TT: - Medical Decision Making This is a 41-year-old -German male with a history of bipolar disorder and paranoid schizophrenia who presents to the ED with complaint of acute onset persistent nontraumatic right hip pain for the last 12 hours. Patient states that the pain has been constant and persistent especially worse with any movement. Patient states that he is unable to bear weight on the right leg because of worsening right hip pain. In the ED, patient is alert and oriented x3 and is not in any distress. Patient was treated for pain in the ED. Right hip x-ray showed no acute fractures or subluxations but findings of mild to moderate right and mild left hip osteoarthritis. On reevaluation, patient's pain is well controlled medication. Patient will be discharged home on medications and advised to follow-up with his primary care physician in 7 to 10 days for reevaluation or return to the ED immediately if symptoms get worse. - Differential Diagnosis right hip bursitis; right hip tendonitis; muscle strain right hip Critical care attestation.: If time is entered above; I have spent that time in minutes in the direct care of this critically ill patient, excluding procedure time. ED Disposition Clinical Impression: Right hip tendinitis Bursitis of right hip Qualifiers: Hip bursitis location: unspecified Qualified Code(s): M70.71 - Other bursitis of hip, right hip Strain of muscle of right hip Qualifiers: Encounter type: initial encounter Qualified Code(s): S76.011A - Strain of muscle, fascia and tendon of right hip, initial encounter Disposition: HOME / SELF CARE / HOMELESS Is pt being admited?: No Does the pt Need Aspirin: No Condition: Stable Instructions: Hip Bursitis, [id number], Bursitis, [id number], Muscle Strain, [id number], Tendinitis, Eyed-al-Ihow Additional Instructions: Right hip x-ray showed no acute fractures or subluxations. Therefore your symptoms are likely due to tendinitis of right hip or bursitis of right hip coupled with muscle strain of right hip. Therefore take medication with food, drink plenty of fluids, follow-up with your primary care physician in 7 to 10 days for reevaluation. Return to the ED immediately if symptoms get worse. Prescriptions: predniSONE [Deltasone] 60 mg PO QDAY #15 tab Ibuprofen [Motrin] 800 mg PO Q8HR PRN #30 tablet PRN Reason: Pain , Severe (7-10) methOCARBAMOL [Robaxin TAB] 750 mg PO Q8H PRN #30 tab PRN Reason: Muscle Spasm traMADoL [Ultram] 50 mg PO Q6HR PRN #12 tablet PRN Reason: Pain Referrals: [facility] [Provider Group] - 7-10 days Forms: Work/School Release Form(ED) Time of Disposition: 03:59 Print Language: KAZAKH
--- NOTE | 2022-05-30 04:14 | XRay Report ---
Pelvis with right hip, 2 views HISTORY: Right hip pain COMPARISON: None FINDINGS: Mild to moderate right and mild left hip osteoarthritis. No acute fracture or dislocation. No focal soft tissue abnormality. Signer Name: Chris Whitfield MD Signed: 05/30/2022 4:09 AM Workstation Name: [id number]
[2022-05-30 05:30] VITALS: BP 128/86
== END 2022-05-30 04:40 | disposition home or self-care (01) ==
LOC: ED 21:18
DX: S76.011A Strain of muscle, fascia and tendon of right hip, initial encounter (principal); M76.891 Other specified enthesopathies of right lower limb, excluding foot; M70.71 Other bursitis of hip, right hip; F31.9 Bipolar disorder, unspecified; Z87.891 Personal history of nicotine dependence; Z79.899 Other long term (current) drug therapy; X58.XXXA Exposure to other specified factors, initial encounter; Y93.89 Activity, other specified; Y92.89 Other specified places as the place of occurrence of the external cause; Y99.8 Other external cause status
CPT/HCPCS: 73502; 96372; 99283; J1100; J1885; J3490; Q0162